=== PATIENT | female | born 1980 | race Caucasian/White ===

== ENCOUNTER → 2018-10-30 | Outpatient (REF) | payer OTHER | LOC: M SFHCADAM 12:33 | PROVIDERS: ATTEND Physician Assistant | DX: Z78.9 Other specified health status (principal) ==

== ENCOUNTER → 2020-04-11 | Outpatient (REF) | payer OTHER | LOC: M SFHCADAM 15:57 | PROVIDERS: ATTEND Physician Assistant | DX: K21.9 Gastro-esophageal reflux disease without esophagitis (principal) ==

== ENCOUNTER → 2020-11-13 | Outpatient (REF) | payer OTHER | LOC: M LAB REF 17:09 | PROVIDERS: ATTEND Obstetrics & Gynecology | DX: N39.0 Urinary tract infection, site not specified (principal) ==

== ENCOUNTER → 2020-11-29 | Outpatient (CLI) | payer BC, OTHER ==
--- NOTE | 2020-11-29 14:18 | REP ---
INDICATION: PELVIC AND PERINEAL PAIN. COMPARISON: None. TECHNIQUE: Transvesical and transvaginal scanning FINDINGS: The uterus measures 7 x 3.4 x 4.3 cm. The parenchymal echo pattern is within normal limits. There is a specular reflection seen within the endometrial cavity consistent with an IUD. The right ovary measures 3 x 2.4 x 2.1 cm and is within normal limits with an RI of 0.46 Left ovary measures 2.6 x 2.2 x 1.5 cm and is within normal limits with an RI 0.51. Urinary bladder measures 8 x 6 x 8 cm. IMPRESSION: Pelvic ultrasonography is within normal limits. There is an IUD identified. <Electronically signed by Akshat Zaman > 11/29/20 [id number]
== END ==
LOC: M RAD 12:57
PROVIDERS: ATTEND Obstetrics & Gynecology
DX: R10.2 Pelvic and perineal pain (principal)

== ENCOUNTER → 2021-09-10 | Outpatient (REF) | payer BC, OTHER | LOC: M SFHCWAGY 16:43 | PROVIDERS: ATTEND Physician Assistant | DX: R35.0 Frequency of micturition (principal) ==